=== PATIENT | female | born 1950 ===

== ENCOUNTER 2018-03-06 07:01 | Day surgery (SDC) | payer MEDICARE ==
--- NOTE | 2018-03-03 15:04 | Brief Operative Note ---
Immediate Post Operative Note Operative Note Chief Complaint: blurry vision Pre-op Diagnosis: Cataract left Eye Procedure: Cataract Extraction With Inner Ocular Lens Implant Left Eye Post-op Diagnosis: same as pre-op Surgeon: Ethan Moffett MD Anesthesia: MAC Specimen: none Complications: none Fluids: LR Estimated Blood Loss: none Drains: none Implant(s) used?: Yes Ethan Moffett MD Mar 03, 2018 15:04
--- NOTE | 2018-03-03 15:06 | Operative Note - PDOC ---
Operative Note Operative Note Date of Operation/Procedure: Mar 06, 2018 Chief Complaint: blurry vision Pre-op Diagnosis: Cataract left Eye Procedure: Cataract Extraction With Inner Ocular Lens Implant Left Eye Post-op Diagnosis: same as pre-op Surgeon: Ethan Moffett MD Anesthesia: MAC Specimen: none Complications: none Fluids: LR Estimated Blood Loss: none Drains: none Implant(s) used?: Yes Indications for Procedure Nuclear Sclerotic Cataract Left Eye Description of Procedure Cataract Extraction With Inner Ocular Lens Implant Left Eye Ethan Moffett MD Mar 03, 2018 15:06
--- NOTE | 2018-03-03 15:06 | Pre-Procedure Note/Attestation ---
Pre-Procedure Note/Attestation Complete Prior to Procedure Planned Procedure: left Procedure Narrative: Cataract Extraction With Inner Ocular Lens Implant Left Eye Indications for Procedure Pre-Operative Diagnosis: Cataract left Eye Attestation I attest that I discussed the nature of the procedure; its benefits; risks and complications; and alternatives (and the risks and benefits of such alternatives ), prior to the procedure, with the patient (or the patient's legal artist representative). I attest that, if there was a reasonable possibility of needing a blood transfusion, the patient (or the patient's legal artist representative) was given the [facility] standardized written summary, pursuant to the David Colerain Blood Safety Act ([place] Health and Safety Code # 1645, as amended). I attest that I re-evaluated the patient just prior to the surgery and that there has been no change in the patient's H&P, except as documented below: Ethan Moffett MD Mar 03, 2018 15:06
--- NOTE | 2018-03-03 15:08 | Opthalmology H&P ---
Ophthalmology H&P H&P Chief Complaint: decreased vision in left eye HPI Vision Affects Ability to: read Past Ocular History: glaucoma Exam Eye Exam: normal OU: external exam, palpebral fissure-width, marginal reflex distance, levator function, corneas, anterior chambers; findings: lens - +4NS CATARACT, fundus exam - poor view Attestation Attestation The risks and benefits of the surgery as well as alternative procedures were explained to the patient in detail. Ethan Moffett MD Mar 03, 2018 15:08
[~2018-03-06] VITALS: Ht 165.1 cm; Wt 88.5 kg
[2018-03-06] VITALS (10 sets, daily range): BP systolic 103–159; BP diastolic 44–88
[~2018-03-06 07:01] MED LIST: Akten 3.5% 1ml Btl LEFT EYE ONE; Proparacaine 0.5% Opth Soln 15ml LEFT EYE ONE; Tetracaine 0.5% Opth 4ml Soln LEFT EYE ONE
[2018-03-06] MEDS: Phenylephrine 10% Opth Soln 5ml LEFT EYE SCH ×3 (08:51→09:24)
[2018-03-06] MEDS: Cyclopentolate 1% Opth Sol 2ml LEFT EYE SCH ×3 (08:51→09:24)
[2018-03-06] MEDS: Tropicamide 1% Opth 15ml Soln LEFT EYE SCH ×3 (08:51→09:24)
[2018-03-06] MEDS: Diclofenac Sod 0.1% Op Soln LEFT EYE SCH ×3 (08:51→09:24)
[2018-03-06] MEDS: Tobramycin Op Soln 0.3% 5ml LEFT EYE SCH ×3 (08:53→09:24)
[2018-03-06] MEDS ORDERED: Maxitrol Opth Oint 3.5gm ONE (09:00)
[2018-03-06] MEDS ORDERED: Pilocarpine 1% Opth 15ml Soln ONE (09:00)
[2018-03-06] MEDS ORDERED: Pred Forte 1% Opth Susp 1ml ONE (09:00)
[2018-03-06] MEDS ORDERED: Dexamethasone 4mg/ml vial ONE (09:00)
[2018-03-06] MEDS ORDERED: VITAMIN D400 INTLU ORAL (09:36)
[2018-03-06] MEDS ORDERED: HUMALOG100 UNIT/1 SUBQ (09:36)
[2018-03-06] MEDS ORDERED: HUMULIN 70100 UNIT/2 SUBQ (09:36)
[2018-03-06] MEDS ORDERED: SIMVASTATIN40 MG ORAL (09:36)
[2018-03-06] MEDS ORDERED: METFORMIN HCL1000 M1 ORAL (09:36)
[2018-03-06] MEDS ORDERED: LISINOPRIL40 MG ORAL (09:36)
[2018-03-06] MEDS ORDERED: HYDROCHLOROTHIA25 MG ORAL (09:36)
[2018-03-06] MEDS ORDERED: fentaNYL 100 mcg/2 mL IV PRN (10:30)
[2018-03-06] MEDS ORDERED: LR 1000ml ONE (11:00)
[2018-03-06] MEDS ORDERED: guaiFENesin 100mg/5ml Liq ud PO SCH (11:00)
[2018-03-06] MEDS ORDERED: NS Irrig 1000ml ONE (11:00)
[2018-03-06] MEDS ORDERED: Sterile Water Irrig 1000ml IRRIG ONE (11:00)
[2018-03-06] MEDS ORDERED: Propofol 200mg/20ml IV ONE (11:00)
[2018-03-06] MEDS ORDERED: Midazolam 2mg/2ml Inj ONE (11:00)
--- NOTE | 2018-03-06 11:13 | Anethesia Preoperative Eval ---
Anesthesia Pre-op PMH/ROS General Date of Evaluation: Mar 06, 2018 Time of Evaluation: 11:01 Anesthesiologist: Shilo ASA Score: ASA 3 Mallampati Score Class I : Soft palate, uvula, fauces, pillars visible Class II: Soft palate, uvula, fauces visible Class III: Soft palate, base of uvula visible Class IV: Only hard plate visible Mallampati Classification: Class III Surgeon: Betina Diagnosis: Cataract left eye Surgical Procedure: Cataract extraction with IOL left eye Allergies: Coded Allergies: No Known Allergies (Unverified , 03/03/18) Medications: see eMAR Patient NPO?: Yes NPO Date: Mar 06, 2018 NPO Time: 21:00 Past Medical History Cardiovascular: Reports: HTN; Denies: CAD, HI, valve dz, arrhythmia, other Pulmonary: Denies: asthma, COPD, MIGUELITO, other Gastrointestinal/Genitourinary: Denies: GERD, CRI, ESRD, other Neurologic/Psychiatric: Denies: dementia, CVA, depression/anxiety, TIA, other Endocrine: Reports: DM; Denies: hypothyroidism, steroids, other HEENT: Reports: cataract (L), cataract (R); Denies: glaucoma, [place] (L), [place] (R), other Hematology/Immune: Denies: anemia, DVT, bleeding disorder, other Musculoskeletal/Integumentary: Denies: OA, RA, DJD, DDD, edema, other Other: obesity PMH Narrative: DM, HTN, hypercholesterolemia, obesity, recent couph PSxH Narrative: APOLLO Anesthesia Pre-op Phys. Exam Physician Exam Last Vital Signs Date Time Temp Pulse Resp B/P (MAP) Pulse Ox O2 Delivery O2 Flow Rate FiO2 03/06/18 09:12 Room Air 03/06/18 09:01 97.4 73 18 159/88 98 Constitutional: NAD Neurologic: CN 2-12 intact Cardiovascular: RRR, no M/R/G Respiratory: CTA - Recent cough, finished antibiotics yesterday, will give guafenacin PO prior to surgery Gastrointestinal: S/NT/ND Airway Exam Mallampati Score: Class III MO: full ROM: full Teeth: intact Anesthesia Pre-op A/P Labs No contraindication for surgery Risk Assessment & Plan Assessment: Class 3 patient for cataract extraction Plan: MAC Status Change Before Surgery: No Pre-Antibiotics Drug: None David Lao MD Mar 06, 2018 11:13
--- NOTE | 2018-03-06 11:30 | Immediate Post-Op Evaluation ---
Immediate Post-Op Evalulation Immediate Post-Op Evalulation Procedure: Cataract extraction with IOL left eye Date of Evaluation: Mar 06, 2018 Time of Evaluation: 12:32 IV Fluids: 500 Blood Pressure Systolic: 149 Blood Pressure Diastolic: 74 Pulse Rate: 82 Respiratory Rate: 17 O2 Sat by Pulse Oximetry: 98 Temperature (Fahrenheit): 98.5 Pain Score (1-10): 0 Nausea: No Vomiting: No Complications No complication Patient Status: awake, patent, none Hydration Status: adequate Drug: None David Lao MD Mar 06, 2018 11:30
[2018-03-06] MEDS ORDERED: BSS 15ml BTL ONE (11:40)
[2018-03-06] MEDS ORDERED: Povidone-Iodine 5% opth solution ONE (11:40)
[2018-03-06] MEDS ORDERED: Sodium Hyaluronate 14 mg/ml 0.85ml ONE (11:40)
[2018-03-06] MEDS ORDERED: EPINEPHrine 1mg/1ml Amp ONE (11:40)
[2018-03-06] MEDS ORDERED: BSS 500ml btl ONE (11:40)
[2018-03-06] MEDS ORDERED: acetaZOLAMIDE 500mg Inj ONE (11:42)
--- NOTE | 2018-03-06 12:24 | 48 Hour Post Anesthesia Eval ---
Post Anesthesia Evaluation Procedure: Cataract extraction with IOL left eye Date of Evaluation: Mar 06, 2018 Time of Evaluation: 12:50 Blood Pressure Systolic: 152 0: 74 Pulse Rate: 80 Respiratory Rate: 18 O2 Sat by Pulse Oximetry: 98 Airway: patent Nausea: No Vomiting: No Pain Intensity: 0 Hydration Status: adequate Cardiopulmonary Status: Stable Mental Status/LOC: patient returned to baseline Follow-up Care/Observations: As per surgery Post-Anesthesia Complications: No anesthetic complication Follow-up care needed: N/A David Lao MD Mar 06, 2018 12:24
--- NOTE | 2018-03-07 15:08 | Brief Operative Note ---
Immediate Post Operative Note Operative Note Chief Complaint: blurry vision Pre-op Diagnosis: Dense Cataract left Eye Procedure: Cataract Extraction With Intra Ocular Lens Implant Left Eye Post-op Diagnosis: Pseudophakia Post-op Diagnosis: same as pre-op Surgeon: Betina Anesthesiologist: Shilo Anesthesia: MAC Specimen: none Complications: none Condition: stable Fluids: Lr Estimated Blood Loss: none Drains: none Implant(s) used?: Yes Ethan Moffett MD Mar 07, 2018 15:07
--- NOTE | 2018-03-07 15:09 | Operative Note - PDOC ---
Operative Note Operative Note Date of Operation/Procedure: Mar 06, 2018 Chief Complaint: blurry vision Pre-op Diagnosis: Dense Cataract left Eye Procedure: Cataract Extraction With Intra Ocular Lens Implant Left Eye Post-op Diagnosis: Pseudophakia Post-op Diagnosis: same as pre-op Surgeon: Betina Anesthesiologist: Shilo Anesthesia: MAC Specimen: none Complications: none Condition: stable Fluids: Lr Estimated Blood Loss: none Drains: none Implant(s) used?: Yes Indications for Procedure cataract Description of Procedure This patient has been complaining visually significant cataract in the affected eye with the best corrected visual acuity under moderate glare conditions worse. The patient complains of difficulties with glare in performing activities of daily living and wants to manage personal affairs with comfort and accuracy and see well enough to move with safety at home and outdoors. The risks, benefits and alternatives of the procedure were discussed with the patient in the office prior to scheduling surgery. All questions from the patient were answered after the surgical procedure was explained in detail. The risks of the procedure as explained to the patient include, but are not limited to, pain, infection, bleeding, loss of vision, retinal detachment, need for further surgery, loss of lens nucleus, double vision, etc. Alternative procedures were discussed which include, to do nothing or seek a second opinion. Informed consent for this procedure was obtained from the patient. The patient was referred to a primary care physician for a cardiopulmonary clearance prior to surgery, after proper evaluation was done patient was properly scheduled for outpatient surgery. The patient was brought to the operating room where the anesthesiologist established I.V. lines and cardiac monitoring leads. Mild intravenous sedation was administered. The patient was then prepared with a 5% solution of povidone -iodine to the conjunctival fornix and lashes, and a 5% solution of povidone- iodine to the lids and periorbital skin. The patient was then draped in the usual sterile fashion. A lid speculum was then placed in the operative eye. A keratome blade was then used to create a biplanar incision into the anterior chamber. Viscoelastics was then instilled into the anterior chamber. A curvilinear capsulorrhexis was then fashioned with an utrata forceps followed by hydrodissection and hydro delineation of the dense lens nucleus. Paracentesis incision was made at 3 o'clock with sharp blade. The phacoemulsification unit, after being properly adjusted and tested, was then used to emulsify the dense nucleus followed by aspiration and irrigation of residual cortical material. Healon was then instilled into the anterior chamber. The corneal wound was then enlarged to the size of the optic with the juana keratome blade. The intraocular lens was then inspected for right power and size and thought to be satisfactory. Then the lens was gently placed in the capsular bag. Positioning within the capsular bag was confirmed by direct visualization. Optic centration was accomplished with a Sinskey hook. Viscoelastics was removed from the anterior chamber using the irrigation and aspiration unit. The corneal wound was then tested for leaks and none were found. The lid speculum were then removed. Sponge and needle counts were correct. An eye patch and shield were placed over the operative eye. The patient was taken to the recovery room in stable condition. There were no complications. The patient tolerated the procedure well. The patient was then transferred to the ambulatory surgery unit in stable and satisfactory condition , was given detailed written instructions and asked to follow up in the office the next day. Ethan Moffett MD Mar 07, 2018 15:09
== END 2018-03-06 13:40 | disposition home or self-care (01) ==
LOC: SUR 07:01
DX: H25.12 Age-related nuclear cataract, left eye (principal); E11.9 Type 2 diabetes mellitus without complications; Z79.4 Long term (current) use of insulin; E66.9 Obesity, unspecified; I10 Essential (primary) hypertension; E78.5 Hyperlipidemia, unspecified; Z79.82 Long term (current) use of aspirin; Z90.710 Acquired absence of both cervix and uterus
CPT/HCPCS: 66984; 82962; J0171; J1100; J1120; J2250; J2405; J2704; J3370; V2632; 94003; 94150